=== PATIENT | male | born 1950 | race Caucasian/White ===

== ENCOUNTER 2020-02-29 14:25 | Emergency (ER) | payer MEDICARE, OTHER ==
[2020-02-29] MEDS ORDERED: Sodium Chloride 0.9% 10 ML Syringe FLUSH PRN (15:22)
[2020-02-29] MEDS ORDERED: Iopamidol 755 Mg/ML 100 ML Bottle IVPUSH ONE (15:33)
[2020-02-29] MEDS ORDERED: Sodium Chloride 0.9% 100 ML IV SCH (15:45)
[2020-02-29] MEDS: Sodium Chloride 0.9% 10 ML Syringe FLUSH PRN ×2 (15:49→16:15)
--- NOTE | 2020-02-29 16:46 | EDM.PDOC ---
ED HPI GENERAL MEDICAL PROBLEM - General Chief Complaint: Respiratory Problem Stated Complaint: SOB AND LOW O2 Time Seen by Provider: 02/29/20 14:33 Source of Information: Reports: Patient History Limitations: Reports: No Limitations - History of Present Illness INITIAL COMMENTS - FREE TEXT/NARRATIVE: The patient presents from the walk in clinic for shortness of breath. The pa bryson has nonHodgkin's lymphoma. He is taking chem. He is on his 5th round tomorrow. He comes up from [place] and today he got his labs. He went to the walk in clinic and they sent him here for further work up. He says since December after every chemo treatment he has been more short of breath. He denies chest pain. He has no fever, chills, cough, abdominal pain, nausea or vomiting. He quit smoking about 15 months ago. He has been treated multiple times for COVID 19 and he has been negative. He also has not been around anyone but his . This morning he woke up with numbness in his left hand and foot. He had a hard time grabbing things with his hand. That is better now. He has no headache. Onset: Gradual Duration: Week(s): Improves with: Reports: None Worsens with: Reports: None Associated Symptoms: Reports: Shortness of Breath. Denies: Chest Pain, Cough, Fever/Chills, Headaches, Nausea/Vomiting - Related Data Allergies Allergy/AdvReac Type Severity Reaction Status Date / Time No Known Allergies Allergy Verified 02/29/20 14:37 Home Meds: Home Meds Acetaminophen [Tylenol 8 Hour] 1 tab PO Q8H PRN 02/29/20 [History] Chlorthalidone 25 mg PO DAILY 02/29/20 [History] Past Medical History Cardiovascular History: Reports: Hypertension Oncologic (Cancer) History: Reports: Non-Hodgkin's Lymphoma Social & Family History - Tobacco Use Tobacco Use Status *Q: Former Tobacco User Used Tobacco, but Quit: Yes Month/Year Tobacco Last Used: 2019 - Recreational Drug Use Recreational Drug Use: No ED ROS GENERAL - Review of Systems Review Of Systems: See Below Constitutional: Reports: No Symptoms HEENT: Reports: No Symptoms Respiratory: Reports: Shortness of Breath. Denies: Cough Cardiovascular: Reports: No Symptoms Endocrine: Reports: No Symptoms GI/Abdominal: Reports: No Symptoms : Reports: No Symptoms Musculoskeletal: Reports: No Symptoms Skin: Reports: No Symptoms Neurological: Reports: Numbness (left arm and leg), Weakness (left hand) ED EXAM, GENERAL - Physical Exam Exam: See Below Exam Limited By: No Limitations General Appearance: Alert, No Apparent Distress Ears: Normal External Exam Nose: Normal Inspection Head: Atraumatic, Normocephalic Neck: Normal Inspection Respiratory/Chest: No Respiratory Distress, Lungs Clear, Normal Breath Sounds Cardiovascular: Regular Rate, Rhythm, No Edema, No Murmur GI/Abdominal: Soft, Non-Tender, No Organomegaly, No Mass Back Exam: Normal Inspection Extremities: Normal Inspection Neurological: Alert, Oriented, No Motor/Sensory Deficits #1 Interpretation EKG Date: 02/29/20 Time: 15:40 Rhythm: NSR Rate (Beats/Min): 95 [place]: LAD-Left [place] Deviation P-Wave: Present QRS: Normal ST-T: Normal QT: Normal EKG Interpretation Comments: Q wave in aVF Course - Vital Signs Last Recorded V/S: Last Vital Signs Temp 97.2 F 02/29/20 14:33 Pulse 106 H 02/29/20 14:33 Resp 39 H 02/29/20 14:33 BP 154/72 H 02/29/20 14:33 Pulse Ox 88 L 02/29/20 14:33 - Orders/Labs/Meds Orders: Active Orders 24 hr Category Date Time Status EKG Documentation Completion [RC] ASDIRECTED Care 02/29/20 15:24 Active Peripheral IV Care [RC] . DIRECTED Care 02/29/20 15:23 Active Ang Chest [CT] Stat Exams 02/29/20 15:23 Taken Head wo Cont [CT] Stat Exams 02/29/20 15:23 Taken Sodium Chloride 0.9% [Normal Saline] 100 ml Med 02/29/20 15:45 Active IV ASDIRECTED Sodium Chloride 0.9% [Saline Flush] Med 02/29/20 15:22 Active 10 ml FLUSH ASDIRECTED PRN Sodium Chloride 0.9% [Saline Flush] Med 02/29/20 15:33 Active 10 ml FLUSH ONETIME PRN Peripheral IV Insertion Adult [OM.PC] Routine Oth 02/29/20 15:22 Ordered EKG 12 Lead [EK] Stat Ther 02/29/20 15:24 Ordered Medication Orders Sodium Chloride (Normal Saline) 100 mls @ 60 mls/hr IV ASDIRECTED SANTI Last Admin: 02/29/20 16:15 Dose: 60 mls/hr Documented by: [id number] Sodium Chloride (Saline Flush) 10 ml FLUSH ASDIRECTED PRN PRN Reason: Keep Vein Open Last Admin: 02/29/20 16:59 Dose: 10 ml Documented by: JOSE DAVID Sodium Chloride (Saline Flush) 10 ml FLUSH ONETIME PRN PRN Reason: Keep Vein Open Last Admin: 02/29/20 16:15 Dose: 10 ml Documented by: [id number] Admin: 02/29/20 15:49 Dose: 10 ml Documented by: [id number] Labs: Laboratory Tests 02/29/20 02/29/20 Range/Units 15:42 15:42 D-Dimer, Quantitative 10.75 H (0.19-0.50) mg/L Troponin I 0.066 H* (0.00-0.056) ng/mL Meds: Medications Generic Name Dose Route Start Last Admin Trade Name Mac PRN Reason Stop Dose Admin Sodium Chloride 100 mls @ 60 mls/hr 02/29/20 15:45 02/29/20 16:15 Normal Saline IV 60 mls/hr ASDIRECTED SANTI Administration Sodium Chloride 10 ml 02/29/20 15:22 02/29/20 16:59 Saline Flush FLUSH 10 ml ASDIRECTED PRN Administration Keep Vein Open Sodium Chloride 10 ml 02/29/20 15:33 02/29/20 16:15 Saline Flush FLUSH 10 ml ONETIME PRN Administration Keep Vein Open Discontinued Medications Generic Name Dose Route Start Last Admin Trade Name Mac PRN Reason Stop Dose Admin Apixaban 10 mg 02/29/20 17:40 Eliquis PO 02/29/20 17:41 ONETIME ONE Iopamidol 100 ml 02/29/20 15:33 02/29/20 16:15 Isovue-370 (76%) IVPUSH 02/29/20 15:34 100 ml ONETIME ONE Administration - Re-Assessments/Exams Free Text/Narrative Re-Assessment/Exam: 02/29/20 17:47 I ordered an IV saline lock, troponin, D-dimer, CT of his head and CT angio of his chest. He has labs done and they showed a glucose of 125, BUN of 9, creatinine of 0.76, Na of 141, K of 3, anion gap of 16, calcium of 8.8, AST of 41, WBC of 9.9, Hgb of 10.5, and platelets of 471. 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 Central and cortical atrophy consistent with age. No CT evidence of acute infarction, intracranial hemorrhage or mass. The patient has never had a stroke before and 8 hours is to early to see changes like this. I do not think this is new. The CT of his chest shows right sided pulmonary emboli. No evidence of dissection. Bronchiectatic changes noted within both lung bases. The lungs are hyperinflated, consistent with underlying small airways disease. I called Dr Casanova at [facility] and he recommended eliquis or xarelto. I ordered some eliquis. I think he needs to be admitted. His D-dimer was elevated and his troponin was elevated at 0.66. [facility] had no beds and [facility] was full. I talked to the patient about transferring to [facility] or [place] and he did not want to go anywhere. He would like to go home on eliquis. I will discharge him home. Departure - Departure Time of Disposition: 18:00 Disposition: Home, Self-Care 01 Condition: Good Clinical Impression: Elevated troponin, Left arm numbness Non-Hodgkin lymphoma Qualifiers: Non-Hodgkin lymphoma type: unspecified type Lymphoma site: unspecified region Qualified Code(s): C85.90 - Non-Hodgkin lymphoma, unspecified, unspecified site Pulmonary embolism Qualifiers: Pulmonary embolism type: other Chronicity: acute Acute cor pulmonale presence: without acute cor pulmonale Qualified Code(s): I26.99 - Other pulmonary embolism without acute cor pulmonale - Discharge Information *PRESCRIPTION DRUG MONITORING PROGRAM REVIEWED*: Not Applicable *COPY OF PRESCRIPTION DRUG MONITORING REPORT IN PATIENT [place]: Not Applicable Referrals: PCP,Not In Area [Primary Care Provider] - Forms: ED Department Discharge Additional Instructions: Take your medication as prescribed. Take the eliquis 10mg 2 times per day for 7 days and then 5 mg two times per day after. Follow up with your doctor. Please return if you are worse. Sepsis Event Note (ED) - Evaluation Sepsis Screening Result: No Definite Risk - Focused Exam Vital Signs: Vital Signs Temp Pulse Resp BP Pulse Ox 02/29/20 14:33 97.2 F 106 H 39 H 154/72 H 88 L - My Orders Last 24 Hours: My Active Orders 02/29/20 15:22 Sodium Chloride 0.9% [Saline Flush] 10 ml FLUSH ASDIRECTED PRN Peripheral IV Insertion Adult [OM.PC] Routine 02/29/20 15:23 Peripheral IV Care [RC] . DIRECTED Ang Chest [CT] Stat Head wo Cont [CT] Stat 02/29/20 15:24 EKG Documentation Completion [RC] ASDIRECTED EKG 12 Lead [EK] Stat 02/29/20 15:33 Sodium Chloride 0.9% [Saline Flush] 10 ml FLUSH ONETIME PRN 02/29/20 15:45 Sodium Chloride 0.9% [Normal Saline] 100 ml IV ASDIRECTED - Assessment/Plan Last 24 Hours: My Active Orders 02/29/20 15:22 Sodium Chloride 0.9% [Saline Flush] 10 ml FLUSH ASDIRECTED PRN Peripheral IV Insertion Adult [OM.PC] Routine 02/29/20 15:23 Peripheral IV Care [RC] . DIRECTED Ang Chest [CT] Stat Head wo Cont [CT] Stat 02/29/20 15:24 EKG Documentation Completion [RC] ASDIRECTED EKG 12 Lead [EK] Stat 02/29/20 15:33 Sodium Chloride 0.9% [Saline Flush] 10 ml FLUSH ONETIME PRN 02/29/20 15:45 Sodium Chloride 0.9% [Normal Saline] 100 ml IV ASDIRECTED
[2020-02-29] MEDS ORDERED: Apixaban 5 MG Tab PO ONE (17:40)
--- NOTE | 2020-03-01 08:49 | CT ---
"Addendum created by Dash Graves DO on 02/29/2020 5:34 PM Central Time ([place] & [place]): THIS REPORT CONTAINS FINDINGS THAT MAY BE CRITICAL TO PATIENT CARE. The findings were verbally communicated via telephone conference at 5:34 PM CDT on 02/29/2020 with INDRA [place]. The findings were acknowledged and understood. Initial Report created on 02/29/2020 5:34 PM Central Time ([place] & [place]): PROCEDURE INFORMATION: Exam: CT Chest With Contrast Exam date and time: 02/29/2020 3:53 PM Age: 69 years old Clinical indication: Shortness of breath; Patient HX: Increased SOB, HX lymphoma TECHNIQUE: Imaging protocol: Computed tomography of the chest with intravenous contrast. 3D rendering (Not supervised by radiologist): MIP and/or 3D reconstructed images were created by the technologist. Contrast material: ISOVUE 370; Contrast volume: 100 ml; Contrast route: INTRAVENOUS (IV); COMPARISON: No relevant prior studies available. FINDINGS: Lungs: Bronchiectatic changes noted within both lung bases. The lungs are hyperinflated, consistent with underlying small airways disease. Pleural space: There is no evidence of pneumothorax. Heart: No evidence of heart strain. No cardiomegaly. No pericardial effusion. Pulmonary arteries: Filling defect is present within the pulmonary artery to the right upper lobe and right lower lobe consistent with pulmonary embolism. Aorta: Unremarkable. No aortic aneurysm. Lymph nodes: There is no evidence of mediastinal or hilar lymphadenopathy. TRELL LUEVANO | Final Radiology Report CONFIDENTIALITY STATEMENT This report is intended only for use by the referring physician, and only in accordance with law. If you received this in error, call [phone]. Page 2 of 2 Bones/joints: The thoracic spine demonstrates moderate degenerative changes at multiple levels. Soft tissues: Unremarkable. Other findings: No evidence of dissection. IMPRESSION: 1. Right-sided pulmonary emboli. 2. No evidence of dissection. 3. Bronchiectatic changes noted within both lung bases. 4. The lungs are hyperinflated, consistent with underlying small airways disease. Thank you for allowing us to participate in the care of your patient. Dictated and Authenticated by: Dash Graves DO 02/29/2020 5:34 PM Central Time ([place] & [place]) [place]"
--- NOTE | 2020-03-01 08:50 | CT ---
"PROCEDURE INFORMATION: Exam: CT Head Without Contrast Exam date and time: 02/29/2020 3:53 PM Age: 69 years old Clinical indication: Numbness / parasthesia and weakness, extremity; Patient HX: Left arm and left leg numbness TECHNIQUE: Imaging protocol: Computed tomography of the head without contrast. COMPARISON: (No prior similar studies are available for comparison.) FINDINGS: Focal area encephalomalacia involving the right parietal convexity consistent with an old right CARLOS infarct. There is no mass lesion or mass effect. There is diffuse central and cortical atrophy consistent with age. There is no CT evidence of acute parenchymal ischemia. There is no intra-axial or extra-axial hemorrhage. There is no evidence of acute obstructive sinonasal disease. Chronic sphenoid sinusitis changes. Mastoid air cells are grossly normal. Small right mastoid effusion.. Other findings: EXAM TYPE: CT of the BRAIN; DATE AND TIME: 02/29/2020 3:53 PM; CLINICAL INFORMATION:; Numbness / parasthesia and weakness, extremity; Patient HX: Left arm and left leg numbness IMPRESSION: 1. Old right parietal infarct as discussed above. 2. Central and cortical atrophy consistent with age. 3. No CT evidence of acute infarction, intracranial hemorrhage or mass. Thank you for allowing us to participate in the care of your patient. TRELL LUEVANO | Final Radiology Report CONFIDENTIALITY STATEMENT This report is intended only for use by the referring physician, and only in accordance with law. If you received this in error, call [phone]. Page 2 of 2 Dictated and Authenticated by: Liban Barnes MD 02/29/2020 5:29 PM Central Time ([place] & [place]) [place]"
== END 2020-02-29 18:30 | disposition home or self-care (01) ==
LOC: JD.ED 14:25
DX: I26.99 Other pulmonary embolism without acute cor pulmonale (principal); C85.90 Non-Hodgkin lymphoma, unspecified, unspecified site; R79.89 Other specified abnormal findings of blood chemistry; R20.0 Anesthesia of skin; I10 Essential (primary) hypertension; Z87.891 Personal history of nicotine dependence
CPT/HCPCS: 36415; 70450; 71275; 84484; 85379; 93005; 99285; A9270; Q9967; 93010; 99284